=== PATIENT | male | born 1975 | race Two or more races ===

== ENCOUNTER 2021-08-07 22:05 | Inpatient (IN) | payer MEDICAID, OTHER ==
[~2021-08-07] VITALS: Ht 165.1 cm; Wt 63.1 kg
[2021-08-07] MEDS ORDERED: SODIUM CHLORIDE 0.9% 1,000 ML IV ONE (23:15)
[2021-08-07 23:37] LABS: Basophils # (auto) 0 10 ^3/uL (0-0.2); Eosinophils # (auto) 0 10 ^3/uL (0-0.8); Monocytes # (auto) 0.4 10 ^3/uL (0-1.3); White Blood Cell 5.8 10^3/uL (4.4-10.8)
[2021-08-07 23:39] LABS: Basophils % (auto) 0.6 % (0.0-2.0); Hematocrit 40.5 % (41.0-53.0); Hemoglobin 13.9 g/dL (13.5-17.5); Lymphocytes % (auto) 16.7 % (10.0-50.0); Mean Corpuscular Hemoglobin 35.3 pg (28.0-32.0); Mean Corpuscular Hgb Conc. 34.3 g/dL (32.0-36.0); Monocytes % (auto) 6.2 % (0.0-12.0); Neutrophils # (auto) 4.5 10 ^3/uL (1.6-8.6); Neutrophils % (auto) 76.5 % (37.0-80.0); Red Blood Cells 3.93 10^6/uL (4.5-5.90); Red Cell Distribution Width 13.9 % (11.8-14.3)
[2021-08-08] LABS: BUN/Creatinine Ratio 10.7; Calcium 8.6 mg/dL (8.5-10.1); Potassium 3.4 mmol/L (3.5-5.1)
[2021-08-08 00:05] LABS: Bilirubin, Total 0.3 mg/dL (0.2-1.0); Lactic Acid w/Reflex 5.5 mmol/L (0.4-2.0)
[2021-08-08] MEDS ORDERED: MORPHINE SULFATE INJECTION 2 MG/ML SYRG IV PRN ×3 (12:45→15:45)
[2021-08-08] MEDS ORDERED: NITROGLYCERIN 0.4 MG SL TAB SL PRN ×2 (12:45→15:45)
[2021-08-08] MEDS ORDERED: SODIUM CHLORIDE 0.9% 2,000 ML IV ONE (15:30)
[2021-08-08] MEDS ORDERED: B-COMPLEX W/ C & FOLIC ACID(NEPHROVITE TAB) PO ONE (15:30)
[2021-08-08] MEDS ORDERED: FAMOTIDINE (10MG/ML) 2ML VL IV ONE (15:30)
[2021-08-08] MEDS ORDERED: ALUM & MAG HYDROX-SIMETH LIQ(MAALOX) 30 ML PO PRN (15:45)
[2021-08-08] MEDS ORDERED: ACETAMINOPHEN 325 MG TAB PO PRN (15:45)
[2021-08-08] MEDS ORDERED: ONDANSETRON HCL 4 MG/2 ML VIAL IV PRN (15:45)
[2021-08-08] MEDS ORDERED: DOCUSATE SOD 100 MG CAP PO PRN (15:45)
[2021-08-08] MEDS ORDERED: LORazepam 0.5 MG TAB PO PRN (15:45)
[2021-08-08] MEDS ORDERED: HYDROcodone-ACET 5/325MG TAB PO PRN (15:45)
[2021-08-08 16:30] LABS: Urine Bacteria FEW /hpf (None Seen); Urine Blood Negative /uL (Negative); Urine Specific Gravity 1.009 (1.001-1.035); Urine WBC 1 /hpf (0 - 3)
[2021-08-08 16:46] LABS: Alcohol, Urine < 3.0 mg/dL (0-10); Amphetamine Screen, Urine NEGATIVE (NEGATIVE); Barbiturate Scree,Urine NEGATIVE (NEGATIVE); Benzodiazephine Screen, Urine NEGATIVE (NEGATIVE); Cannabinoid Screen, Urine NEGATIVE (NEGATIVE); Cocaine Screen, Urine NEGATIVE (NEGATIVE); Opiate Scree,Urine NEGATIVE (NEGATIVE); Phencyclidine Screen, Urine NEGATIVE (NEGATIVE)
[2021-08-08] MEDS: SOD CHL 0.9%/ KCL 20MEQ 1,000 ML IV SCH (16:48)
[2021-08-08 18:04] LABS: Cholesterol 128 mg/dL (< 200); HDL Cholesterol 68 mg/dL (40-59); LDL Cholesterol 51 mg/dL (< 100); Triglycerides 104 mg/dL (< 150)
[2021-08-08 22:00] VITALS: BP 112/63
[2021-08-08 22:05] VITALS: BP 112/63
[2021-08-08] MEDS: ATORVASTATIN 20 MG TAB PO SCH (22:45)
[2021-08-08] MEDS: METOPROLOL TARTRATE 25 MG TAB PO SCH (22:47)
[2021-08-09] MEDS: SOD CHL 0.9%/ KCL 20MEQ 1,000 ML IV SCH (04:50)
[2021-08-09 05:25] VITALS: BP 131/81
[2021-08-09] MEDS: LEVOTHYROXINE SODIUM 25 MCG TAB PO SCH (06:41)
[2021-08-09 08:37] VITALS: BP 143/82
[2021-08-09] MEDS: FAMOTIDINE (10MG/ML) 2ML VL IV SCH ×2 (11:14→21:29)
[2021-08-09] MEDS: BENZTROPINE MESY 0.5 MG TAB PO SCH (11:15)
[2021-08-09] MEDS: ASPirin 81 mg TAB PO SCH (11:15)
[2021-08-09] MEDS: SERTRALINE HCL 50 MG TAB PO SCH (11:18)
[2021-08-09] MEDS: B-COMPLEX W/ C & FOLIC ACID(NEPHROVITE TAB) PO SCH (11:18)
[2021-08-09] MEDS: METOPROLOL TARTRATE 25 MG TAB PO SCH ×2 (11:18→21:30)
[2021-08-09] MEDS: risperiDONE 1 MG TAB PO SCH (11:19)
[2021-08-09] MEDS: ENOXAPARIN SOD 40 MG/0.4 ML SYRINGE SC SCH (11:19)
[2021-08-09 12:52] LABS: Folate (Folic Acid) 13.83 ng/mL (5.38-24)
[2021-08-09 13:00] VITALS: BP_SYST 131; BP_SYST 133; BP_DIAS 71; BP_DIAS 78
[2021-08-09] MEDS ORDERED: BENZ2TAB2 PO (13:08)
[2021-08-09] MEDS ORDERED: RISP4TAB53 PO (13:22)
[2021-08-09] MEDS ORDERED: TAMS0.4C36 PO (13:22)
[2021-08-09] MEDS ORDERED: SERT50TA19 PO (13:22)
[2021-08-09] MEDS ORDERED: DIVA500T13 PO ×2 (13:22)
[2021-08-09] MEDS ORDERED: QUET300T24 PO (13:22)
[2021-08-09] MEDS ORDERED: LEVO25TA6 PO (13:22)
[2021-08-09] MEDS ORDERED: QUET100T38 PO (13:22)
[2021-08-09] MEDS ORDERED: MULTTAB99 PO (13:22)
[2021-08-09] MEDS ORDERED: METO-289 PO (13:22)
[2021-08-09 14:03] LABS: Basophils # (auto) 0 10 ^3/uL (0-0.2); Eosinophils # (auto) 0 10 ^3/uL (0-0.8); Eosinophils % (auto) 0.8 % (0.0-7.0); Hemoglobin 12.1 g/dL (13.5-17.5); Lymphocytes # (auto) 1.1 10 ^3/uL (0.4-5.4); Nucleated Red Blood Cells % 0.1 %; Red Blood Cells 3.35 10^6/uL (4.5-5.90)
[2021-08-09 14:06] LABS: Basophils % (auto) 1.2 % (0.0-2.0); Hematocrit 34.6 % (41.0-53.0); Lymphocytes % (auto) 34.5 % (10.0-50.0); Mean Corpuscular Hgb Conc. 34.8 g/dL (32.0-36.0); Mean Corpuscular Volume 103.5 fL (80.0-100.0); Monocytes # (auto) 0.2 10 ^3/uL (0-1.3); Monocytes % (auto) 7.8 % (0.0-12.0); Neutrophils # (auto) 1.7 10 ^3/uL (1.6-8.6); Neutrophils % (auto) 55.7 % (37.0-80.0); Red Cell Distribution Width 14.1 % (11.8-14.3); White Blood Cell 3.1 10^3/uL (4.4-10.8)
[2021-08-09 14:13] LABS: INR 1.03 (0.9-1.15); Partial Thromboplastin Time 21.1 sec (23.6-33.0)
[2021-08-09 14:23] LABS: Albumin 2.8 g/dL (3.4-5.0); Calcium 8.3 mg/dL (8.5-10.1); Magnesium 2.4 mg/dL (1.6-2.6)
[2021-08-09 14:29] LABS: BUN/Creatinine Ratio 9.9; Bilirubin, Total 0.3 mg/dL (0.2-1.0); Phosphorus 2.9 mg/dL (2.5-4.90); Total Protein 6.8 g/dL (6.4-8.2)
[2021-08-09 15:05] LABS: Potassium 5.8 mmol/L (3.5-5.1)
[2021-08-09 17:00] VITALS: BP 139/79
[2021-08-09] MEDS: ATORVASTATIN 20 MG TAB PO SCH (21:30)
[2021-08-09 22:00] VITALS: BP 135/74
[2021-08-10 05:00] VITALS: BP 152/69
[2021-08-10] MEDS: LEVOTHYROXINE SODIUM 25 MCG TAB PO SCH (06:49)
[2021-08-10 10:24] VITALS: BP 145/98
[2021-08-10] MEDS: ASPirin 81 mg TAB PO SCH (10:33)
[2021-08-10] MEDS: METOPROLOL TARTRATE 25 MG TAB PO SCH (10:33)
[2021-08-10] MEDS: FAMOTIDINE (10MG/ML) 2ML VL IV SCH ×2 (10:33→22:03)
[2021-08-10] MEDS: BENZTROPINE MESY 0.5 MG TAB PO SCH (10:33)
[2021-08-10] MEDS: B-COMPLEX W/ C & FOLIC ACID(NEPHROVITE TAB) PO SCH (10:33)
[2021-08-10] MEDS: risperiDONE 1 MG TAB PO SCH (10:33)
[2021-08-10] MEDS: ENOXAPARIN SOD 40 MG/0.4 ML SYRINGE SC SCH (10:34)
[2021-08-10] MEDS: SERTRALINE HCL 50 MG TAB PO SCH (10:34)
[2021-08-10 11:48] LABS: Basophils # (auto) 0.1 10 ^3/uL (0-0.2); Eosinophils # (auto) 0 10 ^3/uL (0-0.8); Eosinophils % (auto) 1.1 % (0.0-7.0); Hematocrit 37.6 % (41.0-53.0); Hemoglobin 13.1 g/dL (13.5-17.5); Lymphocytes # (auto) 1.4 10 ^3/uL (0.4-5.4); Mean Corpuscular Hemoglobin 35.8 pg (28.0-32.0); Mean Corpuscular Hgb Conc. 34.9 g/dL (32.0-36.0); Mean Corpuscular Volume 102.5 fL (80.0-100.0); Monocytes # (auto) 0.2 10 ^3/uL (0-1.3); Monocytes % (auto) 7.9 % (0.0-12.0); Neutrophils # (auto) 1.5 10 ^3/uL (1.6-8.6); Nucleated Red Blood Cells % 0.1 %; Red Blood Cells 3.67 10^6/uL (4.5-5.90); Red Cell Distribution Width 13.9 % (11.8-14.3); White Blood Cell 3.2 10^3/uL (4.4-10.8)
[2021-08-10 12:40] LABS: Potassium 4.1 mmol/L (3.5-5.1)
[2021-08-10 12:48] LABS: BUN/Creatinine Ratio 8.1; Calcium 8.5 mg/dL (8.5-10.1); Magnesium 2.7 mg/dL (1.6-2.6)
[2021-08-10 12:50] VITALS: BP 121/62
[2021-08-10] MEDS ORDERED: ERTAPENEM SOD INJ 1 GM in SODIUM CHL 0.9% 50 ML IV ONE (14:00)
[2021-08-10 16:50] VITALS: BP 105/54
[2021-08-10 22:00] VITALS: BP 134/66
[2021-08-10] MEDS: ATORVASTATIN 20 MG TAB PO SCH (22:03)
[2021-08-11 05:00] VITALS: BP 100/72
[2021-08-11] MEDS: LEVOTHYROXINE SODIUM 25 MCG TAB PO SCH (06:48)
[2021-08-11 07:57] LABS: Magnesium 2.3 mg/dL (1.6-2.6)
[2021-08-11 08:46] VITALS: BP 103/55
[2021-08-11] MEDS: SERTRALINE HCL 50 MG TAB PO SCH (09:26)
[2021-08-11] MEDS: risperiDONE 1 MG TAB PO SCH (09:26)
[2021-08-11] MEDS: BENZTROPINE MESY 0.5 MG TAB PO SCH (09:26)
[2021-08-11] MEDS: B-COMPLEX W/ C & FOLIC ACID(NEPHROVITE TAB) PO SCH (09:27)
[2021-08-11] MEDS: FAMOTIDINE (10MG/ML) 2ML VL IV SCH ×2 (09:27→22:44)
[2021-08-11] MEDS: ASPirin 81 mg TAB PO SCH (09:27)
[2021-08-11] MEDS: ENOXAPARIN SOD 40 MG/0.4 ML SYRINGE SC SCH (09:27)
[2021-08-11] MEDS ORDERED: HCTZ 25 MG TAB PO SCH (10:00)
[2021-08-11] MEDS: ERTAPENEM SOD INJ 1 GM in SODIUM CHL 0.9% 50 ML IV SCH (10:00)
[2021-08-11] MEDS ORDERED: SODIUM ZIRCONIUM CYCL 10 GM PAK PO ONE (10:30)
[2021-08-11 12:00] VITALS: BP 126/62
[2021-08-11 12:14] LABS: Albumin 2.7 g/dL (3.4-5.0); Calcium 8.5 mg/dL (8.5-10.1); Potassium 4.8 mmol/L (3.5-5.1)
[2021-08-11 12:16] LABS: BUN/Creatinine Ratio 15.9
[2021-08-11 12:18] LABS: Bilirubin, Total 0.2 mg/dL (0.2-1.0); Total Protein 5.8 g/dL (6.4-8.2)
[2021-08-11 15:50] VITALS: BP 103/55
[2021-08-11 17:00] VITALS: BP 129/62
[2021-08-11 20:00] VITALS: BP 112/67
[2021-08-11] MEDS: ATORVASTATIN 20 MG TAB PO SCH (22:44)
[2021-08-12] MEDS: LEVOTHYROXINE SODIUM 25 MCG TAB PO SCH (07:15)
[2021-08-12 09:00] VITALS: BP 119/60
[2021-08-12] MEDS: ERTAPENEM SOD INJ 1 GM in SODIUM CHL 0.9% 50 ML IV SCH (09:36)
[2021-08-12] MEDS: FAMOTIDINE (10MG/ML) 2ML VL IV SCH (09:37)
[2021-08-12] MEDS: ASPirin 81 mg TAB PO SCH (09:37)
[2021-08-12] MEDS: ENOXAPARIN SOD 40 MG/0.4 ML SYRINGE SC SCH (09:37)
[2021-08-12] MEDS: B-COMPLEX W/ C & FOLIC ACID(NEPHROVITE TAB) PO SCH (09:38)
[2021-08-12] MEDS: risperiDONE 1 MG TAB PO SCH (09:38)
[2021-08-12] MEDS: SERTRALINE HCL 50 MG TAB PO SCH (09:38)
[2021-08-12] MEDS: BENZTROPINE MESY 0.5 MG TAB PO SCH (09:38)
[2021-08-12] MEDS ORDERED: NITR-87 PO (11:47)
[2021-08-12 12:51] VITALS: BP 124/76
== END 2021-08-12 17:45 | disposition home or self-care (01) | DRG 207 ==
LOC: EDBD 22:05 → ER 22:05 → TELE 08-08 12:35 → TELE-WESTW 08-08 21:30 → WEST WING 08-11 12:09
PROVIDERS: ADMIT Hospitalist; ATTEND Internal Medicine
PROC: 05HA33Z Insertion of Infusion Device into Left Brachial Vein, Percutaneous Approach (ICD-10-PCS; principal; 2021-08-11)
PROC: B54NZZA Ultrasonography of Left Upper Extremity Veins, Guidance (ICD-10-PCS; 2021-08-11)
DX: I95.9 Hypotension, unspecified (principal); I50.32 Chronic diastolic (congestive) heart failure; E87.1 Hypo-osmolality and hyponatremia; G30.9 Alzheimer's disease, unspecified; F02.80 Dementia in other diseases classified elsewhere, unspecified severity, without behavioral disturbance, psychotic disturbance, mood disturbance, and anxiety; I11.0 Hypertensive heart disease with heart failure; E88.09 Other disorders of plasma-protein metabolism, not elsewhere classified; Q90.9 Down syndrome, unspecified; D75.89 Other specified diseases of blood and blood-forming organs; N39.0 Urinary tract infection, site not specified; E87.6 Hypokalemia; E87.5 Hyperkalemia; E03.9 Hypothyroidism, unspecified; E86.0 Dehydration; R73.03 Prediabetes; Z20.822 Contact with and (suspected) exposure to COVID-19; F39 Unspecified mood [affective] disorder; F79 Unspecified intellectual disabilities; R29.6 Repeated falls; Z16.12 Extended spectrum beta lactamase (ESBL) resistance; E78.5 Hyperlipidemia, unspecified
CPT/HCPCS: 36415; 70450; 70498; 71045; 80048; 80053; 80061; 80307; 81001; 82607; 82746; 83036; 83605; 83735; 83880; 84100; 84132; 84439; 84443; 84484; 85025; 85610; 85730; 87040; 87086; 87088; 87186; 87426; 93005; 93306; 93886; 96360; 96361; G0378; J1335; J3490